=== PATIENT | female | born 1965 | race Caucasian/White ===

== ENCOUNTER → 2021-02-08 | Outpatient (CLI) | payer OTHER | LOC: M.CT 14:46 | PROVIDERS: ATTEND Nurse Practitioner | DX: U07.1 COVID-19 (principal); J12.82 Pneumonia due to coronavirus disease 2019; R91.8 Other nonspecific abnormal finding of lung field ==

== ENCOUNTER → 2021-03-12 | Outpatient (CLI) | payer OTHER | LOC: M.ULTRA 12:34 | PROVIDERS: ATTEND Nurse Practitioner | DX: E04.2 Nontoxic multinodular goiter (principal); E34.9 Endocrine disorder, unspecified ==

== ENCOUNTER → 2021-03-29 | Outpatient (CLI) | payer OTHER | LOC: M.NUC 03-14 11:27 | PROVIDERS: ATTEND Nurse Practitioner | DX: E21.4 Other specified disorders of parathyroid gland (principal); D36.7 Benign neoplasm of other specified sites; R93.89 Abnormal findings on diagnostic imaging of other specified body structures ==

== ENCOUNTER → 2021-04-17 | Outpatient (CLI) | payer OTHER ==
--- NOTE | 2021-04-19 15:07 | PATH ---
[address] [address] PATHOLOGY RPT PROCEDURE Name: FREYA VALLE Room: [facility]#: [id number] Admission: 04/17/21 Date of : 67 Discharge: Report #: [id number] Path Case #: [id number] Note [facility] Accession Number: [id number] TESTS RESULT FLAG UNITS REF RANGE LAB Clinician Provided Cytology Information No. of containers..01 Other (Miscellaneous) Source: THYROID ISTHMUS DIAGNOSIS: 02 THYROID ISTHMUS NODULE (1.29 X 0.99 X 1.51 CM), IMAGE GUIDED FNA: BETHESDA CATEGORY II BENIGN. CONSISTENT WITH A BENIGN FOLLICULAR NODULE WITH CYSTIC DEGENERATION. SEE COMMENT. THIS INTERPRETATION INCLUDES EVALUATION OF A CELL BLOCK. COMMENT: Properly controlled immunohistochemical stains performed on the cell block show the following results, confirming thyroid cells present: TTF-1 - Positive Chromogranin A - Negative (SUZI/db; 04/19/2021) Pathologist ICD10: 02 R89.6 Signed out by: 02 Melquiades Ruiz MD, Pathologist NPI- [id number] Performed by: Lexus Brown, Associate Loan Officer ([facility]) Gross description: 01 40ML, RED, HAZY /LCS 04/19/2021 1223 Local FLAG LEGEND: L-Low Normal,H-High Normal,LL-Alert Low,HH-Alert High <-Panic Low,>-Panic High,A-Abnormal,AA-Critical Abnormal Performed at: 01 [facility] [address] [place] [address] [address] [place] [address] Jaime Kim MD, 02 [facility] [place] [address] Melquiades Ruiz MD, Specimen Comment: A courtesy copy of this report has been sent to [phone], [phone] Specimen Comment: [id number] Specimen Comment: Report sent to / [place] [address] PATHOLOGY RPT PROCEDURE Name: FREYA VALLE Room: [facility]#: [id number] Admission: 04/17/21 Date of : 67 Discharge: Report #: [id number] Path Case #: [id number] Performed at: 01 [facility] [address], [place], [place] [id number] MD Jaime Kim MD Phone: [phone]
== END | disposition home or self-care (01) ==
LOC: M.ULTRA 08:02
DX: E04.1 Nontoxic single thyroid nodule (principal); R89.6 Abnormal cytological findings in specimens from other organs, systems and tissues

== ENCOUNTER → 2021-05-03 | Outpatient (CLI) | payer OTHER | LOC: M.CT 15:00 | PROVIDERS: ATTEND Nurse Practitioner | DX: J84.89 Other specified interstitial pulmonary diseases (principal); U07.1 COVID-19; J12.82 Pneumonia due to coronavirus disease 2019 ==